=== PATIENT | female | born 1995 | race African-American/Black ===

== ENCOUNTER 2024-06-14 16:00 | Outpatient (CLI) | payer BC ==
[2024-06-14 17:19] LABS: BHCG - Serum Negative (NEGATIVE); Pregs Control Background? CLEAR/WHITE (CLR/WHITE); Pregs Control Bar Appear? YES (CONTROL BAR)
== END 2024-06-14 16:01 | disposition home or self-care (01) ==
LOC: LABBT 16:00
PROVIDERS: ATTEND Surgery
DX: Z01.818 Encounter for other preprocedural examination (principal); I10 Essential (primary) hypertension; K21.9 Gastro-esophageal reflux disease without esophagitis
CPT/HCPCS: 84703; 93005; 93010

== ENCOUNTER 2024-06-21 06:12 | Inpatient (IN) | payer BC ==
[2024-06-14 16:12] VITALS: BMI 47.1
[2024-06-21] MEDS ORDERED: Bupivacaine 0.25% HCL 30 ML VIAL ONE (06:41)
[2024-06-21] MEDS ORDERED: EPINEPHrine 1 MG/ML VIAL ONE (06:41)
[2024-06-21] MEDS ORDERED: Scopolamine 1 mg/72 hour Patch ONE (06:53)
[2024-06-21] MEDS ORDERED: Enoxaparin 40 MG (0.4 mL) SYRINGE ONE (06:54)
[2024-06-21] MEDS ORDERED: Sodium Chloride 0.9% 100 ML ONE (06:54)
[2024-06-21] MEDS ORDERED: cefOXitin 2 GM VIAL ONE (06:54)
[2024-06-21] MEDS ORDERED: Rocuronium Bromide 10 MG/ML (10ML VIAL) ONE (07:19)
[2024-06-21] MEDS ORDERED: Lidocaine 2% PF 100 mg/5 ml Syringe ONE (07:19)
[2024-06-21] MEDS ORDERED: Dexamethasone 20 MG/5 ML VIAL ONE (07:19)
[2024-06-21] MEDS ORDERED: Ondansetron PF 4 MG/2 ML Vial ONE ×2 (07:19→09:07)
[2024-06-21] MEDS ORDERED: PROPOFOL 20 ML ONE (07:20)
[2024-06-21] MEDS ORDERED: Fentanyl 250 MCG/5 ML VIAL ONE ×2 (07:20→09:55)
[2024-06-21] MEDS ORDERED: Midazolam HCl 2 mg/2 ml Vial ONE (07:20)
[2024-06-21] MEDS ORDERED: Lidocaine 2% 6 ML (Jelly) SYR ONE ×2 (07:23→07:48)
[2024-06-21] MEDS ORDERED: Glycopyrrolate 0.2 MG/ML 5 ML SYRINGE ONE (07:25)
[2024-06-21] MEDS ORDERED: PHENYLEPHRINE-NS 100 MCG/ML 10 ML SYRINGE ONE (07:25)
[2024-06-21] MEDS ORDERED: Albuterol HFA (OR) 200 PUFF INH ONE ×2 (07:45→07:48)
[2024-06-21] MEDS ORDERED: Labetalol HCl 100 MG/20 ML VIAL ONE (08:29)
[2024-06-21] MEDS ORDERED: SUGAMMADEX SODIUM 200 MG/2 ML VIAL ONE (08:40)
[2024-06-21] MEDS ORDERED: Sodium Chloride 0.9% 250 ML 250 ML ONE (09:06)
[2024-06-21] MEDS ORDERED: Ondansetron HCl/PF 4 MG/2 ML Vial IVP PRN (09:40)
[2024-06-21] MEDS ORDERED: Promethazine HCl 25 MG/ML VIAL IM PRN (09:40)
[2024-06-21] MEDS ORDERED: HYDROmorphone 2 MG/ML VIAL SLOW IVP PRN (09:40)
[2024-06-21] MEDS ORDERED: Meperidine HCl/PF 25 MG/ML VIAL IV PRN (09:40)
[2024-06-21] MEDS ORDERED: Promethazine HCl 25 MG/ML VIAL ONE (09:42)
[2024-06-21] MEDS ORDERED: diphenhydrAMINE 50 MG/ML VIAL IVP PRN (09:51)
[2024-06-21] MEDS ORDERED: Dextrose 50% Abboject 50 ML SYRINGE SLOW IVP PRN (09:51)
[2024-06-21] MEDS ORDERED: Glucagon 1 MG/ML KIT IM PRN (09:51)
[2024-06-21] MEDS ORDERED: Ipratropium/Albuterol 3 ML NEB NEB PRN (09:51)
[2024-06-21] MEDS ORDERED: oxyCODONE 5 MG TAB PO PRN (09:51)
[2024-06-21] MEDS ORDERED: hydrALAZINE 20 MG/ML VIAL SLOW IVP PRN (09:51)
[2024-06-21] MEDS ORDERED: Dextrose 5% in Water 1,000 ML IV PRN (09:51)
[2024-06-21] MEDS ORDERED: traMADol HCl 50 MG TAB PO PRN (09:51)
[2024-06-21] MEDS ORDERED: D5 1/2 NS w/20 mEq KCL 1,000 ML ONE (10:07)
[2024-06-21] MEDS: D5 1/2 NS w/20 mEq KCL 1,000 ML IV SCH (11:45)
[2024-06-21] MEDS: Acetaminophen 650 MG/20.3 ML UDCUP PO SCH (13:27)
[2024-06-21] MEDS: Ketorolac Tromethamine 30 MG (1 mL) VIAL IVP SCH (13:28)
[2024-06-22] MEDS: Enoxaparin 40 MG (0.4 mL) SYRINGE SC SCH (09:22)
[2024-06-22] MEDS: Pantoprazole 40 MG VIAL IVP SCH (09:28)
[2024-06-22] MEDS: Ondansetron PF 4 MG/2 ML Vial IVP PRN (12:03)
[2024-06-22] MEDS: Sodium Chloride 0.9% 1,000 ML IV SCH (15:15)
[2024-06-23 06:48] LABS: #Basophils 0.05 10x3/uL (0.0-0.2); #Eosinophils Less than 0.03 10x3/uL (0.0-0.7); %Basophils 0.4 % (0.0-1.0); %Eosinophils 0.2 % (0.0-10.0); %Lymphocytes 27.8 % (21.0-51.0); %Monocytes 11.4 % (0.0-10.0); %Neutrophils 59.8 % (42.0-75.0); Hematocrit 20.6 % (36.0-47.0); Hemoglobin 6.7 g/dL (12.0-16.0); Mean Corpuscular HGB CONC 32.5 g/dL (32.0-36.0); Mean Corpuscular Hemoglobin 31.5 pg (27.0-31.0); Mean Corpuscular Volume 96.7 fL (78.0-98.0); Mean Platelet Volume 9.6 fL (7.4-10.4); Platelet Count 318 10x3/uL (130-400); Red Blood Cell (RBC) Count 2.13 mill/uL (4.20-5.40)
[2024-06-23 07:09] LABS: Anion Gap 9 mmol/L (10-20); BUN (Urea Nitrogen) 5 mg/dL (7.0-18.7); Calc. Creatinine Clearance 200 mL/min (70-130); Calcium 7.8 mg/dL (7.8-10.44); Carbon Dioxide 19 mmol/L (22-29); Chloride 113 mmol/L (98-107); Estimated GFR 100; Glucose 112 mg/dL (70-105); Potassium 3.9 mmol/L (3.5-5.1); Sodium 137 mmol/L (136-145)
[2024-06-23] MEDS: FLU (Fluarix Triv) TS24-25(6MOS UP)/PF 45 MCG/0.5 ML Syringe IM ONE (09:16)
[2024-06-23 12:57] LABS: #Basophils 0.03 10x3/uL (0.0-0.2); #Eosinophils Less than 0.03 10x3/uL (0.0-0.7); %Basophils 0.3 % (0.0-1.0); %Eosinophils 0.2 % (0.0-10.0); %Monocytes 11.1 % (0.0-10.0); %Neutrophils 61.1 % (42.0-75.0); Hematocrit 20.8 % (36.0-47.0); Hemoglobin 6.8 g/dL (12.0-16.0); Mean Corpuscular HGB CONC 32.7 g/dL (32.0-36.0); Mean Corpuscular Hemoglobin 31.1 pg (27.0-31.0); Mean Platelet Volume 9.1 fL (7.4-10.4); Platelet Count 275 10x3/uL (130-400); Red Blood Cell (RBC) Count 2.19 mill/uL (4.20-5.40)
[2024-06-24 08:01] LABS: #Basophils 0.03 10x3/uL (0.0-0.2); %Basophils 0.4 % (0.0-1.0); %Eosinophils 1.5 % (0.0-10.0); %Lymphocytes 35.8 % (21.0-51.0); %Monocytes 10.4 % (0.0-10.0); %Neutrophils 51.6 % (42.0-75.0); Hematocrit 18.4 % (36.0-47.0); Hemoglobin 6.1 g/dL (12.0-16.0); Mean Corpuscular HGB CONC 33.2 g/dL (32.0-36.0); Mean Corpuscular Hemoglobin 31.9 pg (27.0-31.0); Mean Corpuscular Volume 96.3 fL (78.0-98.0); Mean Platelet Volume 8.6 fL (7.4-10.4); Platelet Count 246 10x3/uL (130-400); RBC Distribution Width 13.2 % (11.5-14.5); Red Blood Cell (RBC) Count 1.91 mill/uL (4.20-5.40)
[2024-06-24] MEDS: Promethazine HCl 25 MG/ML VIAL IM PRN (22:19)
[2024-06-25 09:02] VITALS: BP 110/73; TEMP 98
== END 2024-06-25 11:44 | disposition home or self-care (01) | DRG 620 ==
LOC: SDC 06:12 → SURG B 11:25 → OBSVTOIN 06-23 07:17
PROVIDERS: ADMIT Surgery; ATTEND Surgery
PROC: 0DB64Z3 Excision of Stomach, Percutaneous Endoscopic Approach, Vertical (ICD-10-PCS; principal; 2024-06-21)
PROC: 8E0W4CZ Robotic Assisted Procedure of Trunk Region, Percutaneous Endoscopic Approach (ICD-10-PCS; 2024-06-21)
DX: E66.01 Morbid (severe) obesity due to excess calories (principal); D62 Acute posthemorrhagic anemia; I10 Essential (primary) hypertension; K21.9 Gastro-esophageal reflux disease without esophagitis; Z68.42 Body mass index [BMI] 45.0-49.9, adult
CPT/HCPCS: 36415; 36416; 80048; 85025; 86850; 86900; 86901; 88307; 88342; 94760; 96372; 96374; 96375; 96376; G0378; J0171; J0665; J0694; J1100; J1650; J1885; J2003; J2250; J2405; J2470; J2550; J2704; J3010; J3480; J7030; J7050; S2900

== ENCOUNTER 2024-07-05 14:54 | Day surgery (SDC) | payer BC ==
[2024-07-05] MEDS: Sodium Chloride 0.9% 1,000 ML IV SCH (15:32)
[2024-07-05 15:36] VITALS: BP 122/78; TEMP 97.8
[2024-07-05 15:44] LABS: #Basophils 0.05 10x3/uL (0.0-0.2); %Basophils 0.4 % (0.0-1.0); %Eosinophils 0.4 % (0.0-10.0); %Lymphocytes 8.6 % (21.0-51.0); %Monocytes 4.8 % (0.0-10.0); %Neutrophils 85.2 % (42.0-75.0); Hematocrit 35.6 % (36.0-47.0); Hemoglobin 11.8 g/dL (12.0-16.0); Mean Corpuscular HGB CONC 33.1 g/dL (32.0-36.0); Mean Corpuscular Hemoglobin 31.2 pg (27.0-31.0); Mean Corpuscular Volume 94.2 fL (78.0-98.0); Platelet Count 647 10x3/uL (130-400); RBC Distribution Width 13.6 % (11.5-14.5); Red Blood Cell (RBC) Count 3.78 mill/uL (4.20-5.40)
[2024-07-05] MEDS ORDERED: Ondansetron PF 4 MG/2 ML Vial IVP SCH (15:45)
[2024-07-05 15:55] LABS: Anion Gap 22 mmol/L (10-20); BUN (Urea Nitrogen) 12 mg/dL (7.0-18.7); Calc. Creatinine Clearance 0 mL/min (70-130); Calcium 10.1 mg/dL (7.8-10.44); Carbon Dioxide 16 mmol/L (22-29); Chloride 107 mmol/L (98-107); Estimated GFR 83; Glucose 121 mg/dL (70-105); Sodium 141 mmol/L (136-145)
[2024-07-05] MEDS: Multivitamins, Adult 10 ML, Thiamine HCl 100 MG in Sodium Chloride 0.9% 1,000 ML IV SCH (16:25)
== END 2024-07-05 18:17 | disposition home or self-care (01) ==
LOC: ONC/OP 14:54
PROVIDERS: ATTEND Surgery
DX: E86.0 Dehydration (principal)
CPT/HCPCS: 36415; 80048; 85025; 96360; 96361; J3411; J7030